=== PATIENT | male | born 1965 | race Caucasian/White ===

== ENCOUNTER 2023-10-27 13:43 | Outpatient (AMB) | payer OTHER, SELFPAY ==
--- NOTE | 2023-10-27 13:52 | A.OFFPC_ITS ---
Vital Signs 10/27/23 13:54 Height 6 ft 2 in Weight 193 lb BMI 24.8 BP 128/80 Blood Pressure Location Lt brachial Position Sitting Pulse 58 Pulse Source Pulse Oximeter Pulse Oximetry (%) 98 Oxygen Delivery Method Room Air Intake Visit Reasons: Establish care Intake Note: Patient is here as a new patient, he is concerned about frequency of urination. Allergies No Known Allergies Allergy (Verified 10/27/23 13:56) Tobacco use date assessed: 10/27/23 Dental Screening Dental Screen Date: 10/27/23 Did you have a dental visit in the last 12 months?: Yes Did you have a dental problem in the last 6 months where you did not have access to dental care?: No Was dental information given to patient?: Patient has dentist HPI HPI Comments History of Present Illness Details This is a 58-year-old male with a past medical history of exercise induced asthma presenting to [facility]. He has not seen a primary care provider in about 10 years. He was spending some time down in [place] for work, and he did not have any medical issues that came up warranting evaluation over the years. He scheduled this appointment to address what he thinks is a prostate issue. 2- 3 years ago he noticed he started urinating more frequently during the day and night. Over the past year it has gotten worse. He urinates upwards of 10 times per day. At night he gets up approximately every 90 minutes to urinate. The first 2/3 of the urine stream are normal, but the last 1/3 he has hesitancy and has to push the urine out with more effort. He denies dysuria, abdominal pain, blood in his urine, unexplained weight loss or night. He has no history of diabetes and denies polydipsia. Denies family history of prostate cancer. He takes albuterol as needed if he is going to run vigorously. He is a nonsmoker. His father suddenly at age 37 of an unknown cause. Because of this the patient saw a experimental technician and had a stress test and EKG. His experimental technician said everything was okay with his heart. He denies chest pain or shortness of breath. ROS: Constitutional: No unexplained weight loss, fever, chills, fatigue or night sweats. Respiratory: No shortness of breath, cough or sputum production. Cardiovascular: No chest pain, chest pressure or chest discomfort. No palpitations or pedal edema. Gastrointestinal: No anorexia, nausea, vomiting or diarrhea. No abdominal pain or blood in stool. Physical exam:. Neck: Supple, Full range of motion. No lymphadenopathy Respiratory: Clear to auscultation. Cardiovascular: S1 S2 regular. No murmurs Gastrointestinal: Abdomen soft, non-tender, non-distended. Normal bowel sounds. No palpable masses. Genitourinary: No costovertebral angle tenderness. Deferred prostate exam. Extremities: Warm and well perfused. No clubbing, cyanosis or edema. Psychiatric: Normal mood and affect [facility] Medical History (Updated 10/27/23 @ 14:43 by SUREKHA Kinney) Urinary hesitancy Urinary frequency Skin cancer Exercise-induced asthma Surgical History (Updated 10/27/23 @ 14:00 by Lynn Enrique CMA) No pertinent past surgical history Family History (Updated 10/27/23 @ 14:43 by SUREKHA Kinney) Mother Ear problems UTI (urinary tract infection) Father No problems noted. 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 1. Little interest or pleasure in doing things: not at all 2. Feeling down, depressed, or hopeless: not at all 3. Trouble falling or staying asleep, or sleeping too much: not at all 4. Feeling tired or having little energy: not at all 5. Poor appetite or overeating: not at all 6. Feeling bad about yourself - or that you are a failure or have let yourself or your family down: not at all 7. Trouble concentrating on things, such as reading the newspaper or watching television: not at all 8. Moving or speaking so slowly that other people could have noticed. Or the opposite - being so fidgety or restless that you have been moving around a lot more than usual: not at all 9. Thoughts that you would be better off or of hurting yourself in some way: not at all Total score: 0 Depression Screening Interpretation: Negative Depression Screening Done: Yes Source: Developed by Drs. Joseph Sánchez, Sophie Pickard, Hamlet Hwoe and colleagues, with an educational lilly from [employer]. Thrive Questionnaire Date Thrive assessed: 10/27/23 I am a: Patient What is your living situation today?: I have a steady place to live Within the past 12 months, did the food you bought not last and you didn't have the money to get more?: Never true Within the past 12 months, did you worry whether your food would run out before you got money to buy more?: Never true Do you have trouble paying for medicines?: No Do you have trouble getting transportation to medical appointments?: No Do you have trouble paying your heating and electricity bill?: No Do you have trouble taking care of your child, family member or friend?: No Do you have trouble with day-to-day activities such as bathing, preparing meals, shopping, managing finances, etc.?: No Are you currently unemployed and looking for a job?: No Are you interested in more education?: No THRIVE Score: 0 AUDIT C Alcohol Use Questionnaire (AUDIT-C) 1. How often do you have a drink containing alcohol?: Never 3. How often do you have six or more drinks on one occasion?: Never Total Score: 0 SHILOH-7 AMB Questionnaire SHILOH-7 Date SHILOH - 7 assessed: 10/27/23 Feeling nervous, anxious, or on edge: 0 = Not at all Not being able to stop or control worryin = Not at all Worrying too much about different things: 0 = Not at all Trouble relaxin = Not at all Being so restless that it is hard to sit still: 0 = Not at all Becoming easily annoyed or irritable: 0 = Not at all Feeling afraid as if something awful might happen: 0 = Not at all Total SHILOH-7 score (0-4 normal; 5-9 mild; 10-14 moderate; 15-21 severe): 0 Source: Developed by Drs. Joseph Sánchez, Sophie Pickard, Hamlet Howe and colleagues, with an educational lilly from [employer]. ACT Questionnaire In the past 4 weeks, how much of the time did your asthma keep you from getting as much done at work, school or at home?: None of the time During the past 4 weeks, how often have you had shortness of breath?: Not at all During the past 4 weeks, how often did your asthma symptoms wake you up at night or earlier than usual in the morning?: Not at all During the past 4 weeks, how often have you had to use your rescue inhaler or nebulizer medication?: Once a week or less How would you rate your asthma control during the past 4 weeks?: Well controlled Score: 23 Physical exam (Primary Care) Vital Signs: Last Vital Signs Pulse 58 10/27/23 13:54 BP 128/80 10/27/23 13:54 Pulse Ox 98 10/27/23 13:54 Oxygen Delivery Method Room Air 10/27/23 13:54 BMI result Body Mass Index 24.8 Tobacco/Smoking Status: Tobacco use Status Tobacco use date assessed 10/27/23 10/27/23 14:13 Patient Tobacco Use Status Never used Tobacco 10/27/23 14:13 e-Cigarette/Vaping Use Never Used 10/27/23 14:13 PHQ-9: PHQ-9 Score PHQ-9: Total score 0 10/27/23 14:26 Depression Screening Interpretation: Negative Thrive Assessment: Date of Thrive Assessment Date Thrive assessed 10/27/23 10/27/23 14:13 Assessment and Plan Assessment & Plan (1) Urinary hesitancy: Code(s): R39.11 - Hesitancy of micturition (2) Urinary frequency: Code(s): R35.0 - Frequency of micturition (3) Exercise-induced asthma: Code(s): J45.990 - Exercise induced bronchospasm Plan Patient will have his lab work updated including PSA. Referred to Urology. Urine dip negative for hematuria and signs of infection. No glucosuria. Initiate trial of Flomax. Side effects and administration reviewed. Follow up in 3 months for physical exam. Orders: Orders Lipid Panel Today R35.0 - Frequency of micturition, Z13.6 - Encounter for screening for cardiovascular disorders Comprehensive Met. Panel Today R35.0 - Frequency of micturition Complete Blood Count no Diff Today R35.0 - Frequency of micturition Prostate Specific Antigen Scr Today R35.0 - Frequency of micturition, Z12.5 - Encounter for screening for malignant neoplasm of prostate Referrals Urology Referral R35.0 - Frequency of micturition, R39.11 - Hesitancy of micturition Medications: New 2 tamsulosin (Flomax) Administer capsules ~30 minutes after the same mealtime each day 0.4 mg PO DAILY 30 caps 0RF Coding Level of Care Code New Pt Level 3 (17536) Complex EM visit Add On G2211 Diagnoses Urinary hesitancy R39.11 Urinary frequency R35.0 Exercise-induced asthma J45.990
[2023-10-27 13:54] VITALS: BP 128/80; PULSE 58; O2SAT 98; BMI 24.8
== END 2023-10-27 14:41 | disposition home or self-care (01) ==
PROVIDERS: PCP Physician Assistant Medical; Visit Provider Physician Assistant Medical
DX: R35.0 Frequency of micturition (principal); J45.990 Exercise induced bronchospasm
CPT/HCPCS: 81003; 99203; G2211

== ENCOUNTER 2023-10-28 07:36 | Outpatient (REF) | payer OTHER, SELFPAY ==
[2023-10-28 11:45] LABS: Hematocrit 46.2 % (42.0-52.0); Hemoglobin 16.1 g/dl (14.0-18.0); Mean Corpuscular HGB Conc 34.8 g/dl (31.0-36.0); Mean Corpuscular Hemoglobin 32.3 pg (27.0-33.0); Mean Corpuscular Volume 92.8 fL (80.0-98.0); Mean Platelet Volume 11.8 fL (9.4-12.4); Platelet Count 116 X10*3/uL (160-400); Red Blood Count 4.98 X10*6/uL (4.60-5.80); Red Cell Distribution Width 12.5 % (11.0-16.0); White Blood Count 4.8 X10*3/uL (4.8-10.8)
[2023-10-28 11:52] LABS: Alanine Aminotransferase 27 U/L (0-40); Albumin Level 4.2 g/dL (3.5-5.0); Alkaline Phosphatase 49 U/L (39-117); Anion Gap 11 (12-20); Aspartate Amino Transferase 35 U/L (5-37); Blood Urea Nitrogen 26 mg/dL (9-16); Calcium 9.5 mg/dL (8.4-10.2); Carbon Dioxide 25 mmol/L (22-29); Chloride 105 mmol/L (96-108); Cholesterol 141 mg/dL (<200); Estimated Glomerular Filt Rate > 60; Glucose Random 94 mg/dL (60-115); HDL Cholesterol 61 mg/dL (>40); LDL Cholesterol Calculated 69 mg/dL (<100); Potassium 4.2 mmol/L (3.3-5.1); Sodium 137 mmol/L (135-145); Total Protein 6.8 g/dL (6.5-8.0); Triglycerides 55 mg/dL (<150)
[2023-10-28 12:12] LABS: Prostate Specific Antigen Scr 1.02 ng/mL (<0.05-4.0)
== END 2023-10-28 07:37 | disposition home or self-care (01) ==
LOC: HO.WFDLDS 07:36
PROVIDERS: Visit Provider Physician Assistant Medical
DX: Z13.6 Encounter for screening for cardiovascular disorders (principal); Z12.5 Encounter for screening for malignant neoplasm of prostate; R35.0 Frequency of micturition
CPT/HCPCS: 36415; 80053; 80061; 84153; 85027

== ENCOUNTER 2023-11-28 07:57 | Outpatient (REF) | payer OTHER, SELFPAY ==
[2023-11-28 11:26] LABS: Baso%MD 1.2 %; Eos%MD 1.8 %; Hematocrit 46.6 % (42.0-52.0); IG%MD 0.2 %; Lymph%MD 27.1 %; Mean Corpuscular HGB Conc 34.3 g/dl (31.0-36.0); Mean Corpuscular Hemoglobin 31.9 pg (27.0-33.0); Mean Platelet Volume 11.4 fL (9.4-12.4); Mono%MD 11.1 %; Neut%MD 58.6 %; Platelet Count 120 X10*3/uL (160-400); Red Blood Count 5.01 X10*6/uL (4.60-5.80); Red Cell Distribution Width 12.8 % (11.0-16.0); White Blood Count 4.9 X10*3/uL (4.8-10.8)
[2023-11-28 13:06] LABS: Basophils Percent Manual 1 % (0-2); Eosinophils Absolute Manual 0.1 X10*3/uL (0.0-0.4); Eosinophils Percent Manual 3 % (0-4); Lymphocytes Absolute Manual 1.3 X10*3/uL (1.2-4.9); Lymphocytes Percent Manual 27 % (20-40); Monocytes Absolute Manual 0.5 X10*3/uL (0.1-1.2); Monocytes Percent Manual 11 % (2-11); Neutrophils Percent Manual 58 % (45-73)
[2023-11-28 13:07] LABS: Band Neutrophils Percent 0 % (3-5); Neutrophils Absolute Manual 2.8 X10*3/uL (2.0-8.3); Platelet Estimate DECREASED (NORMAL); Platelet Morphology Comment NORMAL; RBC Morphology NORMAL
== END 2023-11-28 07:58 | disposition home or self-care (01) ==
LOC: HO.WFDLDS 07:57
PROVIDERS: Visit Provider Physician Assistant Medical
DX: D69.6 Thrombocytopenia, unspecified (principal)
CPT/HCPCS: 36415; 85007; 85027

== ENCOUNTER 2024-02-02 08:21 | Outpatient (AMB) | payer OTHER, SELFPAY ==
--- NOTE | 2024-02-02 08:28 | A.OFFPC_ITS ---
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 Patient is seeing Dr. Sy. Patient said he had an ultrasound which showed a large post void residual. He was placed on VESIcare in addition to the tamsulosin. Unfortunately he continues to have urinary symptoms. He has a follow up appointment with Urology this Friday. He saw dermatology, and he had SCC removed from the right side of his face. He will be having appointments every 6 months. Patient was referred to hematology for evaluation of thrombocytopenia. He will call them to schedule after his Urology appointment this Friday. He had a lot of appointments so he made a decision to delay scheduling for a bit. No easy bleeding or unusual bruising. No fatigue or weight loss. He declines tetanus vaccination and flu vaccine. He says he received the Shringrix vaccine at [facility] three years ago. He declines colonoscopy and Cologuard. Denies family history of colorectal cancer. Denies GI symptoms. He is UTD with dental and eye exams. He is running for exercise. Nonsmoker. Healthy diet. ROS: Constitutional: No unexplained weight loss, fever, chills, fatigue or night sweats. Eyes: No vision changes, blurry vision, double vision, eye pain, eye redness, eye discharge. ENT: No hearing loss, sneezing, congestion, runny nose or sore throat. Respiratory: No shortness of breath, cough or sputum production. Cardiovascular: No chest pain, chest pressure or chest discomfort. No palpitations or pedal edema. Gastrointestinal: No anorexia, nausea, vomiting or diarrhea. No abdominal pain or blood in stool. Genitourinary: No dysuria or hematuria. No scrotal pain, testicular masses or swelling. Neurologic: No headache, dizziness, syncope, unilateral weakness, ataxia, numbness or tingling in the extremities. Musculoskeletal: No muscle pain, back pain, joint pain or swelling. Hematologic/Lymphatics: No bleeding or bruising. No painful lymph nodes. Skin: No rash or itching. Endocrine: No cold or heat intolerance. Psychiatric: No depression or anxiety. No SI/HI. Physical exam: Constitutional: Alert, in no distress. Head: Normocephalic. Eyes: Pupils are equal, round and reactive to light. Extraocular muscles intact. Ear, Nose and Throat: Brown cerumen in the canals. Visible portions of TMs normal. Normal nasal mucosa. No nasal discharge. No oral lesions. Neck: Supple, Full range of motion. No lymphadenopathy. No palpable thyroid masses. Respiratory: Clear to auscultation. Cardiovascular: S1 S2 regular. No murmurs. No carotid bruits. Gastrointestinal: Abdomen soft, non-tender, non-distended. Normal bowel sounds. No palpable masses. Genitourinary: Deferred-patient sees urology. Neurologic: No focal neurological deficits. Symmetric patellar reflexes. Moves all extremities spontaneously. Sensation intact bilaterally. Skin: No rashes or lesions. Musculoskeletal: No gross deformities. Normal range of motion. Extremities: Warm and well perfused. No clubbing, cyanosis or edema. 3+ peripheral pulses bilaterally. Psychiatric: Normal mood and affect [facility] Medical History (Updated 02/02/24 @ 08:58 by SUREKHA Kinney) SCC (squamous cell carcinoma), face BPH (benign prostatic hyperplasia) Thrombocytopenia Urinary hesitancy Urinary frequency Skin cancer Exercise-induced asthma Surgical History (Updated 10/27/23 @ 14:00 by Lynn Enrique CMA) No pertinent past surgical history Family History (Updated 10/27/23 @ 14:43 by SUREKHA Kinney) Mother Ear problems UTI (urinary tract infection) Father No problems noted. 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 1. Little interest or pleasure in doing things: not at all 2. Feeling down, depressed, or hopeless: not at all 3. Trouble falling or staying asleep, or sleeping too much: nearly every day 4. Feeling tired or having little energy: not at all 5. Poor appetite or overeating: not at all 6. Feeling bad about yourself - or that you are a failure or have let yourself or your family down: not at all 7. Trouble concentrating on things, such as reading the newspaper or watching television: not at all 8. Moving or speaking so slowly that other people could have noticed. Or the opposite - being so fidgety or restless that you have been moving around a lot more than usual: not at all 9. Thoughts that you would be better off or of hurting yourself in some way: not at all Total score: 3 Depression Screening Interpretation: Negative Depression Screening Done: Yes [id number] - PHQ-9 Billing: Yes Source: Developed by Drs. Joseph Sánchez, Sophie Pickard, Hamlet Howe and colleagues, with an educational lilly from [employer]. Thrive Questionnaire Date Thrive assessed: 10/27/23 I am a: Patient What is your living situation today?: I have a steady place to live Within the past 12 months, did the food you bought not last and you didn't have the money to get more?: Never true Within the past 12 months, did you worry whether your food would run out before you got money to buy more?: Never true Do you have trouble paying for medicines?: No Do you have trouble getting transportation to medical appointments?: No Do you have trouble paying your heating and electricity bill?: No Do you have trouble taking care of your child, family member or friend?: No Do you have trouble with day-to-day activities such as bathing, preparing meals, shopping, managing finances, etc.?: No Are you currently unemployed and looking for a job?: No Are you interested in more education?: No Please select the resources that you would like help with: None Currently or been in a relationship where the following occur: No concerns reported THRIVE Score: 0 AUDIT C Alcohol Use Questionnaire (AUDIT-C) 1. How often do you have a drink containing alcohol?: Never Total Score: 0 SHILOH-7 AMB Questionnaire SHILOH-7 Date SHILOH - 7 assessed: 10/27/23 Feeling nervous, anxious, or on edge: 0 = Not at all Not being able to stop or control worryin = Not at all Worrying too much about different things: 0 = Not at all Trouble relaxin = Not at all Being so restless that it is hard to sit still: 0 = Not at all Becoming easily annoyed or irritable: 0 = Not at all Feeling afraid as if something awful might happen: 0 = Not at all Total SHILOH-7 score (0-4 normal; 5-9 mild; 10-14 moderate; 15-21 severe): 0 Source: Developed by Drs. Joseph Sánchez, Sophie Pickard, Hamlet Howe and colleagues, with an educational lilly from [employer]. SHILOH-7 Assessment Billing SHILOH-7 Assessment Tool: SHILOH-7 Assessment 80517 Physical exam (Primary Care) Vital Signs: Last Vital Signs Pulse 48 L 02/02/24 08:31 BP 128/72 02/02/24 08:31 Pulse Ox 99 02/02/24 08:31 Oxygen Delivery Method Room Air 02/02/24 08:31 BMI result Body Mass Index 24.4 Tobacco/Smoking Status: Tobacco use Status Tobacco use date assessed 10/27/23 02/02/24 08:29 Patient Tobacco Use Status Never used Tobacco 02/02/24 08:29 e-Cigarette/Vaping Use Never Used 02/02/24 08:29 PHQ-9: PHQ-9 Score PHQ-9: Total score 3 02/02/24 08:29 Depression Screening Interpretation: Negative Thrive Assessment: Date of Thrive Assessment Date Thrive assessed 10/27/23 02/02/24 08:29 Currently or been in a relationship where the following occur: No concerns reported Coding Level of Care Code Est Pt Prev Care 40-64y(42630) Diagnoses Routine physical examination Z00.00 SCC (squamous cell carcinoma), face C44.320 BPH (benign prostatic hyperplasia) N40.0 Thrombocytopenia D69.6 Exercise-induced asthma J45.990 Additional Codes SHILOH-7 Assessment Billing - SHILOH-7 Assessment Tool: SHILOH-7 Assessment 22750 ([id number]) Assessment & Plan Assessment & Plan (1) Routine physical examination: Code(s): Z00.00 - Encounter for general adult medical examination without abnormal findings Plan: Patient is seen today for a routine physical. As part of this visit we reviewed the following issues, which are considered and essential part of preventative health in this age group: - Testicular cancer screening, which includes self exam teaching - Screening for colon cancer - Discussed Prostate cancer screening - Blood pressure screening - Cholesterol screening - Nutritional and exercise counseling - Counseling of injury prevention including fire prevention, smoke alarms and seat belt usage - Screening for depression - Prevention of and/or testing for infectious diseases - Education about skin cancer - Recommendations about immunizations - Recommendation of an eye exam - Screening for substance abuse (2) SCC (squamous cell carcinoma), face: Code(s): C44.320 - Squamous cell carcinoma of skin of unspecified parts of face Category: Medical Plan: Patient is followed by dermatology every 6 months. (3) BPH (benign prostatic hyperplasia): Code(s): N40.0 - Benign prostatic hyperplasia without lower urinary tract symptoms Category: Medical Plan: Follow up with Urology this Friday to discuss further treatment. (4) Thrombocytopenia: Code(s): D69.6 - Thrombocytopenia, unspecified Category: Medical Plan: Patient and I discussed differential diagnosis for thrombocytopenia. I explained the importance of seeing hematology for further evaluation and to see what additional testing if any is indicated. Going to call this week to schedule the appointment. He is aware that failure to contact Hematology to schedule the appointment could result in delayed diagnosis and increased risk of morbidity and mortality. (5) Exercise-induced asthma: Code(s): J45.990 - Exercise induced bronchospasm Category: Medical Plan: Continue albuterol 2 puffs every 4 hours as needed. Plan Follow up for annual physical exam in 1 year. Medications: New albuterol sulfate 90 mcg/actuation 2 inhalations inhalation .every 4 hours 30 days PRN 8.5 grams 0RF shortness of breath or wheezing
[2024-02-02 08:31] VITALS: BP 128/72; PULSE 48; O2SAT 99; BMI 24.4
== END 2024-02-02 08:53 | disposition home or self-care (01) ==
PROVIDERS: PCP Physician Assistant Medical; Visit Provider Physician Assistant Medical
DX: Z00.00 Encounter for general adult medical examination without abnormal findings (principal); C44.320 Squamous cell carcinoma of skin of unspecified parts of face; N40.0 Benign prostatic hyperplasia without lower urinary tract symptoms; D69.6 Thrombocytopenia, unspecified; J45.990 Exercise induced bronchospasm

== ENCOUNTER → 2024-02-02 08:21 | Outpatient (BNVA) | payer OTHER, SELFPAY | PROVIDERS: PCP Physician Assistant Medical; Visit Provider Physician Assistant Medical | DX: Z00.00 Encounter for general adult medical examination without abnormal findings (principal); C44.320 Squamous cell carcinoma of skin of unspecified parts of face; N40.0 Benign prostatic hyperplasia without lower urinary tract symptoms; D69.6 Thrombocytopenia, unspecified; J45.990 Exercise induced bronchospasm | CPT/HCPCS: 96127 ==

== ENCOUNTER 2024-07-28 07:54 | Outpatient (REF) | payer OTHER, SELFPAY ==
[2024-07-28 11:23] LABS: MANUAL DIFF FLAG NO
[2024-07-28 11:43] LABS: Basophils Absolute Auto 0.1 X10*3/uL (0.0-0.2); Basophils Percent Auto 1.4 % (0-2); Eosinophils Absolute Auto 0.3 X10*3/uL (0.0-0.4); Eosinophils Percent Auto 6.4 % (0-4); Hematocrit 47.3 % (42.0-52.0); Hemoglobin 15.8 g/dl (14.0-18.0); Imm Gran Abs Auto 0.01 X10*3/uL (0.00-0.03); Imm Gran Pct Auto 0.2 % (0.0-0.4); Lymphocytes Absolute Auto 1.3 X10*3/uL (1.2-4.9); Lymphocytes Percent Auto 29.8 % (20-40); Mean Corpuscular HGB Conc 33.4 g/dl (31.0-36.0); Mean Corpuscular Hemoglobin 31.4 pg (27.0-33.0); Mean Platelet Volume 11.4 fL (9.4-12.4); Monocytes Absolute Auto 0.5 X10*3/uL (0.1-1.2); Neutrophils Absolute Auto 2.2 x10*3/uL (2.0-8.3); Neutrophils Percent Auto 50.2 % (45-73); Platelet Count 119 X10*3/uL (160-400); Red Blood Count 5.03 X10*6/uL (4.60-5.80); Red Cell Distribution Width 12.9 % (11.0-16.0); White Blood Count 4.4 X10*3/uL (4.8-10.8)
[2024-07-28 12:03] LABS: Ferritin 379 ng/mL (20-250); Iron 93 mcg/dL (45-160); Percent Iron Saturation 35 % (15-50); Total Iron Binding Capacity 264 mcg/dL (228-428); Unsaturated Iron Binding 171 ug/dL
[2024-07-28 12:05] LABS: Vitamin B12 685 pg/mL (200-900)
== END 2024-07-28 07:55 | disposition home or self-care (01) ==
LOC: HO.WFDLDS 07:54
PROVIDERS: Visit Provider Physician Assistant Medical
DX: D69.6 Thrombocytopenia, unspecified (principal); Z91.89 Other specified personal risk factors, not elsewhere classified
CPT/HCPCS: 36415; 82607; 82728; 83540; 85025

== ENCOUNTER → 2024-08-30 10:03 | Outpatient (BNV) | payer OTHER, SELFPAY | PROVIDERS: PCP Physician Assistant Medical; Referring Provider Physician Assistant Medical; Visit Provider Internal Medicine Medical Oncology | DX: D69.6 Thrombocytopenia, unspecified (principal) | CPT/HCPCS: 99204 ==

== ENCOUNTER 2025-02-03 07:41 | Outpatient (REF) | payer OTHER, SELFPAY ==
[2025-02-03 11:56] LABS: Alanine Aminotransferase 36 U/L (0-40); Albumin Level 4.5 g/dL (3.5-5.0); Alkaline Phosphatase 54 U/L (39-117); Anion Gap 9 (12-20); Aspartate Amino Transferase 43 U/L (5-37); Blood Urea Nitrogen 23 mg/dL (9-16); Calcium 9.2 mg/dL (8.4-10.2); Carbon Dioxide 32 mmol/L (22-29); Chloride 104 mmol/L (96-108); Cholesterol 163 mg/dL (<200); Estimated Glomerular Filt Rate > 60; HDL Cholesterol 66 mg/dL (>40); Potassium 4.4 mmol/L (3.3-5.1); Sodium 141 mmol/L (135-145); Total Protein 7.3 g/dL (6.5-8.0); Triglycerides 57 mg/dL (<150)
[2025-02-03 12:12] LABS: Prostate Specific Antigen 1.96 ng/mL (<0.05-4.0)
== END 2025-02-03 07:42 | disposition home or self-care (01) ==
LOC: HO.WFDLDS 07:41
PROVIDERS: Visit Provider Physician Assistant Medical
DX: Z13.6 Encounter for screening for cardiovascular disorders (principal); Z12.5 Encounter for screening for malignant neoplasm of prostate; D69.6 Thrombocytopenia, unspecified; N40.0 Benign prostatic hyperplasia without lower urinary tract symptoms; Z79.899 Other long term (current) drug therapy; C44.320 Squamous cell carcinoma of skin of unspecified parts of face; J45.990 Exercise induced bronchospasm; H61.23 Impacted cerumen, bilateral
CPT/HCPCS: 36415; 69209; 80053; 80061; 84153; 96127; 99212

== ENCOUNTER 2025-02-03 07:53 | Outpatient (AMB) | payer OTHER, SELFPAY ==
--- NOTE | 2025-02-03 08:04 | A.OFFPC_ITS ---
Vital Signs 02/03/25 08:23 Height 6 ft 2 in Weight 195 lb 2 oz BMI 25.0 BP 120/62 Blood Pressure Location Rt brachial Position Sitting Respiration 16 Pulse 52 Pulse Source Pulse Oximeter Temp 97.3 F Temp Source Temporal Artery Scan Pulse Oximetry (%) 98 Oxygen Delivery Method Room Air Intake Visit Reasons: annual physical exam Intake Note: Bart presents in the office today for his annual physical. Allergies shellfish Allergy (Intermediate, Uncoded 02/03/25 08:04) Hives Medication List - Last Reconciled 02/03/25 by SUREKHA Kinney albuterol sulfate 90 mcg/actuation 2 inhalations inhalation .every 4 hours PRN 30 days ciprofloxacin-dexamethasone 0.3-0.1 % 4 drps otic (ear) right BID 7 days tadalafil (Cialis) 5 mg PO DAILY tamsulosin (Flomax) 0.4 mg PO DAILY Tobacco use date assessed: 02/03/25 Dental Screening Dental Screen Date: 02/03/25 Did you have a dental visit in the last 12 months?: Yes Did you have a dental problem in the last 6 months where you did not have access to dental care?: No Was dental information given to patient?: Patient has dentist HPI HPI Comments History of Present Illness Details This is a 59-year-old male with a past medical history of exercise- induced asthma, thrombocytopenia and BPH presenting for a physical exam. The patient has an additional concern today about his ears. His right ear has felt blocked and sore for 2 weeks. He started using Debrox drops this past Friday. Denies fevers, chills, congestion or cold symptoms. No dizziness or headaches. Patient sees Dr. Sy. Patient said he had an ultrasound which showed a large post void residual, and he says they were trying to determine if this was related to his prostate versus bladder, but they told him that the treatment would be the same. He takes Cialis and Flomax. Symptoms are stable. They discussed alternative treatments with the patient, but for now he is going to stay on the medication. He saw dermatology, and he had SCC removed from the right side of his face. He sees Dermatology every 12 months for an exam. No known recurrence. He is followed by hematology for thrombocytopenia. He had mentioned possible claudication symptoms in his lower extremities, and an arterial ultrasound was ordered, but the patient has not had a completed yet. He is not sure he is going to have it done at this time though I explained why it is recommended. He had a low positive YULISSA result. No known family history of autoimmune diseases. He denies easy bleeding or her unusual bruising, fatigue and weight loss. He is very active. He cycles, runs and does other forms of cardiovascular exercise. He is a nonsmoker. He follows a healthy diet. He declines tetanus vaccination, pneumonia vaccine and flu vaccine. He says he received the Shringrix vaccine at [facility] several years ago. He declines colonoscopy and Cologuard. Denies family history of colorectal cancer. He is UTD with dental and eye exams. ROS: Constitutional: No unexplained weight loss, fever, chills, fatigue or night sweats. Eyes: No vision changes, blurry vision, double vision, eye pain, eye redness, eye discharge. ENT: No hearing loss, sneezing, congestion, runny nose or sore throat. See HPI Respiratory: No shortness of breath, cough or sputum production. Cardiovascular: No chest pain, chest pressure or chest discomfort. No palpitations or pedal edema. Gastrointestinal: No anorexia, nausea, vomiting or diarrhea. No abdominal pain or blood in stool. Genitourinary: No dysuria or hematuria. No scrotal pain, testicular masses or swelling. Neurologic: No headache, dizziness, syncope, unilateral weakness, ataxia, numbness or tingling in the extremities. Musculoskeletal: Patient has a partially torn ligament in his left wrist related to an old injury and saw orthopedics for this. He modified activity, and it has improved. Surgery was not indicated. Hematologic/Lymphatics: No bleeding or bruising. No painful lymph nodes. Skin: No rash Endocrine: No cold or heat intolerance. Psychiatric: No depression or anxiety. No SI/HI. Physical exam: Constitutional: Alert, in no distress. Head: Normocephalic. Eyes: Extraocular muscles intact. Ear, Nose and Throat: Bilateral canals occluded by brown cerumen. Mastoids nontender. Normal nasal mucosa. No nasal discharge. No oral lesions. Neck: Supple, Full range of motion. No lymphadenopathy. No palpable thyroid masses. Respiratory: Clear to auscultation. Cardiovascular: S1 S2 regular. No murmurs. No carotid bruits. Gastrointestinal: Abdomen soft, non-tender, non-distended. Normal bowel sounds. No palpable masses. Genitourinary: Deferred-patient sees urology. Neurologic: No focal neurological deficits. Symmetric patellar reflexes. Moves all extremities spontaneously. Sensation intact bilaterally. Skin: No rashes Musculoskeletal: No gross deformities. Normal range of motion. Extremities: Warm and well perfused. No clubbing, cyanosis or edema. Intact peripheral pulses bilaterally. Psychiatric: Normal mood and affect [facility] Medical History (Updated 02/03/25 @ 09:43 by SUREKHA Kinney) Impacted cerumen of both ears Screening for cardiovascular condition SCC (squamous cell carcinoma), face BPH (benign prostatic hyperplasia) Thrombocytopenia Urinary hesitancy Urinary frequency Skin cancer Exercise-induced asthma Surgical History No pertinent past surgical history Family History (Updated 02/03/25 @ 08:06 by Tamara Yanes CMA) Mother Ear problems UTI (urinary tract infection) Father No problems noted. Maternal Grandmother Cancer Social History (Updated 02/03/25 @ 08:06 by Tamara Yanes [facility]) Household Members: None Both parents involved: No Caregiver staying overnight: No Housing: House Are you a primary animal care assistant to a significant other at home: No Do you presently have visiting nurse or other home services: No 75 years or older and lives alone: No Alcohol intake: never Patient Tobacco Use Status: Never used Tobacco e-Cigarette/Vaping Use: Never Used Second Hand Smoke Exposure: No Special matt needs: No Agree to transfusion: No service: Yes Current occupational status: employed 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 1. Little interest or pleasure in doing things: not at all 2. Feeling down, depressed, or hopeless: not at all 3. Trouble falling or staying asleep, or sleeping too much: nearly every day 4. Feeling tired or having little energy: not at all 5. Poor appetite or overeating: not at all 6. Feeling bad about yourself - or that you are a failure or have let yourself or your family down: not at all 7. Trouble concentrating on things, such as reading the newspaper or watching television: not at all 8. Moving or speaking so slowly that other people could have noticed. Or the opposite - being so fidgety or restless that you have been moving around a lot more than usual: not at all 9. Thoughts that you would be better off or of hurting yourself in some way: not at all Total score: 3 Depression Screening Interpretation: Negative Depression Screening Done: Yes 27731 - PHQ-9 Billing: Yes Source: Developed by Drs. Joseph Sánchez, Sophie Pickard, Hamlet Howe and colleagues, with an educational lilly from [employer]. Thrive Questionnaire Date Thrive assessed: 02/03/25 I am a: Patient What is your living situation today?: I have a steady place to live Within the past 12 months, did the food you bought not last and you didn't have the money to get more?: Never true Within the past 12 months, did you worry whether your food would run out before you got money to buy more?: Never true Do you have trouble paying for medicines?: No Do you have trouble getting transportation to medical appointments?: No Do you have trouble paying your heating and electricity bill?: No Do you have trouble taking care of your child, family member or friend?: No Do you have trouble with day-to-day activities such as bathing, preparing meals, shopping, managing finances, etc.?: No Are you currently unemployed and looking for a job?: No Are you interested in more education?: No Please select the resources that you would like help with: None Currently or been in a relationship where the following occur: No concerns reported THRIVE Score: 0 AUDIT C Alcohol Use Questionnaire (AUDIT-C) 1. How often do you have a drink containing alcohol?: Never 3. How often do you have six or more drinks on one occasion?: Never Total Score: 0 SHILOH-7 AMB Questionnaire SHILOH-7 Date SHILOH - 7 assessed: 02/03/25 Feeling nervous, anxious, or on edge: 0 = Not at all Not being able to stop or control worryin = Not at all Worrying too much about different things: 0 = Not at all Trouble relaxin = Not at all Being so restless that it is hard to sit still: 0 = Not at all Becoming easily annoyed or irritable: 0 = Not at all Feeling afraid as if something awful might happen: 0 = Not at all Total SHILOH-7 score (0-4 normal; 5-9 mild; 10-14 moderate; 15-21 severe): 0 Source: Developed by Drs. Joseph Sánchez, Sophie Pickard, Hamlet Howe and colleagues, with an educational lilly from [employer]. SHILOH-7 Assessment Billing SHILOH-7 Assessment Tool: SHILOH-7 Assessment 82878 Physical exam (Primary Care) Vital Signs: Last Vital Signs Temp 97.3 F 02/03/25 08:23 Pulse 52 02/03/25 08:23 Resp 16 02/03/25 08:23 BP 120/62 02/03/25 08:23 Pulse Ox 98 02/03/25 08:23 Oxygen Delivery Method Room Air 02/03/25 08:23 BMI result Body Mass Index 25.0 Tobacco/Smoking Status: Tobacco use Status Tobacco use date assessed 02/03/25 02/03/25 08:07 Patient Tobacco Use Status Never used Tobacco 02/03/25 08:07 e-Cigarette/Vaping Use Never Used 02/03/25 08:07 PHQ-9: PHQ-9 Score PHQ-9: Total score 3 02/03/25 08:33 Depression Screening Interpretation: Negative Thrive Assessment: Date of Thrive Assessment Date Thrive assessed 02/03/25 02/03/25 08:07 Currently or been in a relationship where the following occur: No concerns reported Office Procedures Cerumen Removal Details: see assessment and plan From which ear canal was the cerumen removed: bilateral Removal: irrigation Notes: patient tolerated procedure well 49265-Ass Irrigation/Lavage Coding Level of Care Code Est Pt Prev Care 40-64y(78658) Diagnoses Routine physical examination Z00.00 SCC (squamous cell carcinoma), face C44.320 BPH (benign prostatic hyperplasia) N40.0 Thrombocytopenia D69.6 Exercise-induced asthma J45.990 Impacted cerumen of both ears H61.23 CPT Codes Office Procedure - CPT: 41585-Zma Irrigation/Lavage ([id number]) Additional Codes SHILOH-7 Assessment Billing - SHILOH-7 Assessment Tool: SHILOH-7 Assessment 61223 ([id number]) PHQ-9 - 08933 - PHQ-9 Billing: Yes ([id number]) Assessment & Plan Assessment & Plan (1) Routine physical examination: Code(s): Z00.00 - Encounter for general adult medical examination without abnormal findings Plan: Patient is seen today for a routine physical. As part of this visit we reviewed the following issues, which are considered and essential part of preventative health in this age group: - Screening for colon cancer - Blood pressure screening - Cholesterol screening - Nutritional and exercise counseling - Screening for depression - Education about skin cancer - Recommendations about immunizations - Recommendation of an eye exam (2) SCC (squamous cell carcinoma), face: Code(s): C44.320 - Squamous cell carcinoma of skin of unspecified parts of face Category: Medical Plan: Patient is followed by dermatology. No known recurrence. (3) BPH (benign prostatic hyperplasia): Code(s): N40.0 - Benign prostatic hyperplasia without lower urinary tract symptoms Category: Medical Plan: Managed by urology. Continue current medications. (4) Thrombocytopenia: Code(s): D69.6 - Thrombocytopenia, unspecified Category: Medical Plan: Patient is followed by Hematology. This is being monitored. (5) Exercise-induced asthma: Code(s): J45.990 - Exercise induced bronchospasm Category: Medical Plan: Continue albuterol 2 puffs every 4 hours as needed. (6) Impacted cerumen of both ears: Code(s): H61.23 - Impacted cerumen, bilateral Category: Medical Plan: Reviewed risks and benefits of cerumen irrigation. The patient gave verbal consent. Procedure was successful. Upon reinspection the right ear canal was moderately erythematous. The left ear canal was normal-appearing. The tympanic membranes were rocha and pearly and without effusions. I prescribed Ciprodex otic drops to administer to the right ear for 7 days. He is advised to call if he has worsening soreness, incomplete resolution of symptoms, fevers, chills or other concerning symptoms. Plan Follow up for annual physical exam in 1 year. Orders: Orders AMB Cerumen Removal Today H61.23 - Impacted cerumen, bilateral Medications: New tadalafil (Cialis) 5 mg PO DAILY 90 tabs 3RF ciprofloxacin-dexamethasone 0.3-0.1 % 4 drps otic (ear) right BID 7.5 mL 0RF 7 days Refilled albuterol sulfate 90 mcg/actuation 2 inhalations inhalation .every 4 hours PRN 8.5 grams 0RF shortness of breath or wheezing 30 days
[2025-02-03 08:23] VITALS: BP 120/62; PULSE 52; RESP 16; TEMP 36.3; O2SAT 98; BMI 25.0
== END 2025-02-03 09:30 | disposition home or self-care (01) ==
LOC: HO.HMCFM 07:54
PROVIDERS: PCP Physician Assistant Medical; Visit Provider Physician Assistant Medical
DX: Z00.00 Encounter for general adult medical examination without abnormal findings (principal); C44.320 Squamous cell carcinoma of skin of unspecified parts of face; N40.0 Benign prostatic hyperplasia without lower urinary tract symptoms; D69.6 Thrombocytopenia, unspecified; J45.990 Exercise induced bronchospasm; H61.23 Impacted cerumen, bilateral

== ENCOUNTER 2025-03-17 14:10 | Outpatient (REF) | payer OTHER, SELFPAY ==
[2025-03-17 18:12] LABS: Alanine Aminotransferase 37 U/L (0-40); Albumin Level 4.3 g/dL (3.5-5.0); Alkaline Phosphatase 51 U/L (39-117); Aspartate Amino Transferase 43 U/L (5-37); Total Protein 6.7 g/dL (6.5-8.0)
--- OUTSIDE RECORDS SUMMARY | 2025-03-17 19:43 | XMS_ITS | Patient Health Record ---
Author Organization 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 Name Role Phone Gerhard Landers MD Primary Care Provider Unavaila Harry Ernst Unavailable [phone] Allergies Allergen (clinical drug ingredient) Drug/Non Drug Allergy documented on EMR Reaction Allergy Type Onset Date Status Information temporarily unavailable shellfish stomach pain Drug Allergy Active Reason For Referral No Information Medications Medication SIG (Take, Route, Frequency, Duration) Notes Start Date End Date Status ProAir HFA 108 (90 Base) MCG/ACT 2 puffs as needed Inhalation every 4 hrs Active Ciprodex 0.3-0.1 % 4 drops into affecte d ear Otic Twice a day Active Problems Problem Type SNOMED Code ICD Code Onset Dates Problem Status W/U Status Risk Notes Problem Bursitis (42199685) Bursitis (727.3) Active confirmed Problem Myositis (35108063) Myositis (729.1) Active confirmed Problem Pain in limb (60496822) Pain in Limb (729.5) Active confirmed Problem Plantar fasciitis (513087566) Plantar Fasciitis (728.71) Active confirmed Plan Of Treatment Pending Test Test Name Order Date X ray : Foot, left 3V 09/17/2012 Insurance Providers Payer Name Payer Address Payer Phone Subscriber Number Group Number Insured Name Patient Relationship to Insured Coverage Start Date Coverage End Date [facility] [address] [place] [address] [phone] [id number] Elizabeth Self - patient is the insured Medical (General) History Medical History History ICD Code asthma bipolar disorder ear problems chicken pox Surgical History Surgery Date(Month/Year) foot surgery
[2025-03-18 05:35] LABS: Hepatitis A Antibody IgM 0.15 Index (0-0.79); ~Hepatitis A Antibody IgM Nonreactive (Nonreactive)
[2025-03-18 05:45] LABS: HBS Num1 0.02 mIU/mL (0-7.99); HBc Num1 0.06 S/CO (0.00-0.79); HBsAGNum1 0.35 S/CO (0.00-0.99); Hepatitis A Antibody IgM 0.17 Index (0-0.79); Hepatitis B Surface Antigen Negative (Negative); ~HepC Num1 0.17 S/CO (0.00-0.79); ~Hepatitis A Antibody IgM Nonreactive (Nonreactive); ~Hepatitis B Surface Antibody NONREACTIVE (Nonreactive); ~Hepatitis C Antibody Nonreactive (Nonreactive)
== END 2025-03-17 14:11 | disposition home or self-care (01) ==
LOC: HO.WFDLDS 14:10
PROVIDERS: Visit Provider Physician Assistant Medical
DX: R79.89 Other specified abnormal findings of blood chemistry (principal)
CPT/HCPCS: 36415; 80076; 86704; 86706; 86709; 86803; 87340